=== PATIENT | male | born 1960 | race Caucasian/White ===

== ENCOUNTER 2022-01-20 20:58 | Emergency (ER) | payer OTHER ==
[2022-01-20] MEDS ORDERED: CEPHALEXIN500 M1 PO (22:05)
[2022-01-20] MEDS ORDERED: CABOMETYX40 MG PO (22:08)
[2022-01-20] MEDS ORDERED: BACLOFEN5 MG PO (22:09)
[2022-01-20] MEDS ORDERED: XARELTO10 MG PO (22:09)
== END 2022-01-20 22:13 | disposition home or self-care (01) ==
LOC: ED 20:58
DX: T83.098A Other mechanical complication of other urinary catheter, initial encounter (principal); R31.9 Hematuria, unspecified; Y92.89 Other specified places as the place of occurrence of the external cause